=== PATIENT | male | born 1960 | race Caucasian/White ===

== ENCOUNTER 2023-02-01 12:52 | Outpatient (CLI) | payer BC | END 2023-02-01 12:53 | disposition home or self-care (01) | LOC: ULT 12:52 | PROVIDERS: ATTEND Otolaryngology Plastic Surgery within the Head & Neck | DX: R22.1 Localized swelling, mass and lump, neck (principal); K11.8 Other diseases of salivary glands; I77.89 Other specified disorders of arteries and arterioles | CPT/HCPCS: 76536 ==